=== PATIENT | female | born 1985 | race African-American/Black ===

== ENCOUNTER 2023-10-21 18:06 | Inpatient (IN) | payer OTHER, MEDICAID ==
[~2023-10-21] VITALS: Ht 180.3 cm; Wt 86.2 kg
[2023-10-21 18:11] VITALS: O2SAT 96
[2023-10-21] MEDS: DIAZEPAM 5 MG/ML 2ML SYR IV STA (18:41)
[2023-10-21] MEDS: SODIUM CHLORIDE 0.9% 1,000 ML IV ONE ×2 (18:43→20:43)
[2023-10-21 19:03] LABS: CLARITY URINE CLEAR (CLEAR); COLOR URINE YELLOW (YELLOW); GLUCOSE URINE NEGATIVE (NEGATIVE); KETONES URINE TRACE (NEGATIVE); LEUKOCYTE ESTERASE URINE NEGATIVE (NEGATIVE); NITRITE URINE NEGATIVE (NEGATIVE); OCCULT BLOOD URINE 3+ (NEGATIVE); PH URINE 5.5 (4.5-8.0); PROTEIN URINE 1+ (NEGATIVE); SPECIFIC GRAVITY URINE 1.012 (1.005-1.030)
[2023-10-21 19:10] LABS: *AMPHETAMINES SCREEN URINE NEGATIVE (NEGATIVE); *BARBITURATES SCREEN URINE NEGATIVE (NEGATIVE); *BENZODIAZEPINES SCREEN URINE NEGATIVE (NEGATIVE); *COCAINE SCREEN URINE NEGATIVE (NEGATIVE)
[2023-10-21 19:11] LABS: CANNABINOID URINE SCREEN PRESUMPTIVE POSITIVE (NEGATIVE); ECSTASY MDMA SCREEN URINE NEGATIVE (NEGATIVE); METHADONE URINE SCREEN NEGATIVE (NEGATIVE); OPIATES URINE SCREEN NEGATIVE (NEGATIVE); PHENCYCLIDINE URINE SCREEN NEGATIVE (NEGATIVE)
[2023-10-21 19:23] LABS: BACTERIA URINE 1+; SQUAMOUS EPITHELIAL CELL URINE FEW /lpf (RARE/1+)
[2023-10-21 19:24] LABS: WBC URINE 0-2 /hpf (0-2)
[2023-10-21 19:55] LABS: HEMATOCRIT. 38.2 % (36.0-48.0); HEMOGLOBIN. 12.3 g/dL (12.0-16.0); MEAN CORPUSCULAR HEMOGLOBIN 27.3 pg (28.0-32.0); MEAN CORPUSCULAR HGB CONC 32.1 g/dL (31.0-37.0); MEAN CORPUSCULAR VOLUME 84.9 fL (81.0-99.0); PLATELET 247 x1000/uL (130-400); RED CELL DISTRIBUTION WIDTH 14.2 % (11.6-14.6); WHITE BLOOD COUNT 11.4 x1000/uL (4.5-11.0)
[2023-10-21 19:59] LABS: DIFFERENTIAL COMMENT 1
[2023-10-21 20:04] LABS: HCG SCREEN NEGATIVE
[2023-10-21 20:06] LABS: CHLORIDE 108 mEq/L (98-107); POTASSIUM 3.1 mEq/L (3.5-5.1); SODIUM 140 mEq/L (136-145)
[2023-10-21 20:07] LABS: CARBON DIOXIDE 16 mEq/L (21-32); PROTHROMBIN TIME 11.2 sec (9.6-11.0)
[2023-10-21 20:08] LABS: CALCIUM 8.8 mg/dL (8.7-10.4)
[2023-10-21 20:09] LABS: AMMONIA < 17 uMol/L (<32)
[2023-10-21 20:12] LABS: GLUCOSE 78 mg/dL (70-105)
[2023-10-21 20:13] LABS: ETHANOL BLOOD < 10 mg/dL (<10); UREA NITROGEN BLOOD 7 mg/dL (9-23)
[2023-10-21 20:14] LABS: CREATINE KINASE 456 IU/L (34-145)
[2023-10-21 20:22] LABS: LACTIC ACID 6.9 mmol/L (0.4-2.0)
[2023-10-21] MEDS: DIAZEPAM 5 MG/ML 2ML SYR IV ONE (20:22)
[2023-10-21 20:30] LABS: PLATELET ESTIMATE NORMAL
[2023-10-21] MEDS: CLONIDINE 0.1MG TABLET PO NR (22:18)
[2023-10-22 02:08] VITALS: BP 149/89; PULSE 58; RESP 18; TEMP 98
[2023-10-22 04:00] VITALS: BP 142/51; PULSE 54; RESP 18; TEMP 98.2
[2023-10-22 06:00] VITALS: BP 147/99; PULSE 57; RESP 18
[2023-10-22] MEDS: POTASSIUM CHLORIDE 20MEQ/PACKET PO NR (07:17)
[2023-10-22 09:19] LABS: BASOPHILS % 0.2 % (0.0-2.0); HEMATOCRIT. 36.8 % (36.0-48.0); HEMOGLOBIN. 11.8 g/dL (12.0-16.0); LYMPHOCYTES % 8.4 % (20.0-50.0); MEAN CORPUSCULAR HEMOGLOBIN 27.1 pg (28.0-32.0); MEAN CORPUSCULAR HGB CONC 32.1 g/dL (31.0-37.0); MEAN CORPUSCULAR VOLUME 84.5 fL (81.0-99.0); MONOCYTES % 7.1 % (2.0-8.0); NEUTROPHILS % 84.3 % (40.0-76.0); PLATELET 250 x1000/uL (130-400); RED BLOOD CELL COUNT 4.36 mill/uL (4.2-5.4); RED CELL DISTRIBUTION WIDTH 14.4 % (11.6-14.6); WHITE BLOOD COUNT 9.3 x1000/uL (4.5-11.0)
[2023-10-22 09:27] LABS: CARBON DIOXIDE 23 mEq/L (21-32); CHLORIDE 109 mEq/L (98-107); POTASSIUM 4.3 mEq/L (3.5-5.1); SODIUM 139 mEq/L (136-145)
[2023-10-22 09:33] LABS: CREATININE 0.8 mg/dL (0.6-1.0); GLUCOSE 83 mg/dL (70-105)
[2023-10-22 09:52] LABS: UREA NITROGEN BLOOD < 5 mg/dL (9-23)
[2023-10-22] MEDS ORDERED: IPRATROPIUM/ALBUTEROL 0.5-3(2.5)MG/3ML NEB HHN PRN (10:30)
[2023-10-22] MEDS ORDERED: ACETAMINOPHEN 325MG TABLET PO PRN ×2 (10:30)
[2023-10-22] MEDS ORDERED: DOCUSATE SODIUM 100MG CAPSULE PO PRN (10:30)
[2023-10-22] MEDS ORDERED: CLONIDINE 0.1MG TABLET PO PRN (10:30)
[2023-10-22] MEDS ORDERED: ONDANSETRON HCL 4MG/2ML INJ IV PRN (10:30)
[2023-10-22] MEDS: PANTOPRAZOLE SODIUM 40 MG/VIAL IV SCH (10:58)
[2023-10-22] MEDS: DEXT 5%/0.45% NACL 1000ML 1,000 ML IV SCH (11:20)
[2023-10-22 12:11] LABS: AMMONIA < 17 uMol/L (<32)
[2023-10-22 12:58] VITALS: BP 127/76; PULSE 62; RESP 18; TEMP 99
[2023-10-22] MEDS ORDERED: DILTIAZEM HCL 30MG TABLET PO SCH (14:00)
[2023-10-22 16:00] VITALS: BP 121/79; PULSE 67; RESP 20; TEMP 99.1
== END 2023-10-22 17:15 | disposition left against medical advice (07) | DRG 918 ==
LOC: ER 18:06 → 5WST 20:13 → EDBEDREQ 20:35 → EDBEDREQTM 20:35 → EDBEDREQSVC 20:35 → 7EST 10-22 12:16
PROVIDERS: ADMIT Internal Medicine; ATTEND Internal Medicine
DX: T50.991A Poisoning by other drugs, medicaments and biological substances, accidental (unintentional), initial encounter (principal); G93.49 Other encephalopathy; Y92.89 Other specified places as the place of occurrence of the external cause; F17.200 Nicotine dependence, unspecified, uncomplicated; F19.10 Other psychoactive substance abuse, uncomplicated; Z53.29 Procedure and treatment not carried out because of patient's decision for other reasons
CPT/HCPCS: 36415; 71045; 80048; 80305; 80320; 81003; 82140; 82550; 82962; 83605; 84703; 85025; 99285; J2470; J7030; G0480

== ENCOUNTER 2024-02-21 22:41 | Emergency (ER) | payer MEDICAID, OTHER ==
[~2024-02-21] VITALS: Ht 180.3 cm; Wt 90.0 kg
[2024-02-21 23:10] VITALS: O2SAT 99
[2024-02-22] MEDS ORDERED: TOPUD MT (00:03)
[2024-02-22] MEDS: ACETAMINOPHEN 325MG TABLET PO ONE (00:15)
[2024-02-22 01:30] VITALS: BP 115/68; PULSE 70; RESP 18; TEMP 36.83628; O2SAT 99
== END 2024-02-22 01:30 | disposition home or self-care (01) ==
LOC: ER 22:41
DX: M25.572 Pain in left ankle and joints of left foot (principal)
CPT/HCPCS: 73610; 29515; 99283; Z7610